=== PATIENT | male | born 1985 ===

== ENCOUNTER 2021-12-08 05:36 | Outpatient (CLI) | payer SELFPAY ==
[~2021-12-08] VITALS: Ht 167.7 cm; Wt 79.5 kg
[~2021-12-08 05:36] MED LIST: ACHD5005 PO; DCS100C PO
[2021-12-11] MEDS ORDERED: ACHD5005 PO ×2 (09:38→16:12)
[2021-12-11] MEDS ORDERED: DOCU-143 PO ×2 (09:38→16:12)
== END 2021-12-10 10:42 | disposition home or self-care (01) ==
LOC: PREOP 05:36
PROVIDERS: ATTEND Surgery
DX: Z01.818 Encounter for other preprocedural examination (principal)

== ENCOUNTER 2021-12-11 06:16 | Day surgery (SDC) | payer OTHER ==
[~2021-12-11] VITALS: Ht 167.7 cm; Wt 79.5 kg
[2021-12-11] VITALS (13 sets, daily range): BP systolic 111–136; BP diastolic 78–109
[2021-12-11] MEDS: LACTATED RINGERS 1,000 ML IV PRN ×2 (07:20→09:16)
[2021-12-11] MEDS ORDERED: LIDOCAINE/EPI 2% 1:100,00 (XYLOCAINE) 20 ML VIAL ONE (07:26)
[2021-12-11] MEDS ORDERED: ceFAZolin 2 GM IV Premixed 50 ML IV ONE ×2 (07:30→08:15)
[2021-12-11] MEDS ORDERED: ONDANSETRON 4 MG/2 ML (SDV) Z0FRAN ONE (07:44)
[2021-12-11] MEDS ORDERED: GLYCOPYRROLATE 0.2 MG/ML (ROBINUL) 2 ML VIAL ONE (07:44)
[2021-12-11] MEDS ORDERED: LIDOCAINE PF 2% 5 ML (XYLOCAINE) VIAL ONE (07:44)
[2021-12-11] MEDS ORDERED: NEOSTIGMINE 3 MG/3 ML VIAL ONE (07:44)
[2021-12-11] MEDS ORDERED: proPOfol 200 MG/20 ML (DIPRIVAN) VIAL IV ONE (07:44)
[2021-12-11] MEDS ORDERED: fentaNYL INJ 100 MCG/2 ML AMP ONE (07:44)
[2021-12-11] MEDS ORDERED: MIDAZOLAM 2 MG/2 ML (VERSED) VIAL IV ONE (07:45)
[2021-12-11] MEDS ORDERED: MIDAZOLAM 2 MG/2 ML (VERSED) VIAL IVP ONE (08:00)
--- NOTE | 2021-12-11 08:00 | Progress Note-Pre Operative ---
Pre-Operative Progress Note H&P Reviewed The H&P was reviewed, patient examined and no changes noted. Date Seen by Provider: December 11, 2021 Time Seen by Provider: 08:00 Date H&P Reviewed: December 11, 2021 Time H&P Reviewed: 08:00 Pre-Operative Diagnosis: gallbladder polyp JAY ALLRED DO December 11, 2021 08:00
[2021-12-11] MEDS ORDERED: ROCURONIUM 50 MG/5 ML (ZEMURON) VIAL IV ONE (09:26)
[2021-12-11] MEDS ORDERED: morphine INJ 10 MG/ML 1ML (SYR OR VIAL) ONE (09:32)
[2021-12-11] MEDS ORDERED: DOCU-143 PO ×2 (09:38→16:12)
[2021-12-11] MEDS ORDERED: ACHD5005 PO ×2 (09:38→16:12)
--- NOTE | 2021-12-11 09:39 | Discharge Inst-Simple/Standard ---
Discharge Inst-Standard Discharge Medications New, Converted or Re-Newed RX: Transmitted to Pharmacy Patient Instructions/Follow Up Plan of Care/Instructions/FU: 2 weeks Ivis Activity as Tolerated: No Discharge Diet: Regular Diet Other Inst to Patient Follow up Appt: Make appointment for 2 weeks. Instructions: No lifting greater than 10 pounds. No strenuous activity. May shower in 24 hours, no tub bath or soaking. Use incentive spirometer at home as directed. No Smoking Skin/Wound Care: You have special glue over incision, it will fall off on it's own. Symptoms to Report: Appetite Changes, Extremity Discoloration, Numbness/Tingling, Swelling Increased, Bleeding Excessive, Eyesight Changes, Pain Increased, Urine Color Change, Constipation(Persistent), Fever over 101 degree F, Pain/Pressure in chest, Urinating Difficulty, Cough Up/Vomit Blood, Heart Beat Irreg/Pounding, Pain/Pressure in jaw, Vaginal Bleeding Increase, Cramps in feet or legs, Lightheadedness, Pain/Pressure in shoulder, Diarrhea(Persistent), Memory Changes Suddenly, Questions/Concerns, Weight gain consecutive days, Dizziness/Fainting, Nausea/Vomiting, Shortness of Breath, Weight gain over 2 pounds. If eyes or skin turn yellow notify physician. If questions or concerns contact your physician Or seek help at emergency department. JAY ALLRED DO December 11, 2021 09:39
--- NOTE | 2021-12-11 09:41 | Progress Note-Post Operative ---
Post-Operative Progess Note Surgeon (s)/Relations Mgr (s) Surgeon JAY ALLERD DO Relations Mgr: Dr. Johnson to assist i retraction dissection and closure Pre-Operative Diagnosis gallbladder polyp Post-Operative Diagnosis chronic choleycystitis, gallbladder polyp Procedure & Operative Findings Date of Procedure 12/11/21 Procedure Performed/Findings PROCEDURE: Laparoscopic cholecystectomy with intraoperative cholangiogram. COMPLICATIONS: None. PROCEDURE: The patient was taken to the operating suite and was prepped and draped in sterile fashion. A surgical pause was performed. Just superior to the umbilicus, a 12 mm incision was made. Dissection was taken down to the fascia, which was then scored and grasped with a Shayne and the abdomen was then entered. A 0 Vicryl suture was placed in a dnqcer-ul-lnuan fashion and a Davalos trocar was placed and secured. Pneumoperitoneum was achieved. A 5mm trochar place in the subxyphoid and 2 in the right upper quadrant. The gallbladder was then grasped and elevated. Omentum was attached to the gallbladder and had to be taken off with cautery/blunt dissection. The cystic duct, and cystic artery were then dissected out. Clip was placed on the distal portion of the cystic duct which was then partially transected. An arrow catheter was inserted into the duct. The cholangiogram was then performed. No filing defects and contrast made its way into the duodenum. Catheter removed. Clips were placed on proximal portion of the cystic duct and then the duct was then transected. Clips were placed along the proximal and distal portion of the cystic artery which was then transected. Hook cautery was used to dissect the gallbladder from the gallbladder fossa achieving hemostasis. The gallbladder was placed in an Endobag and removed through the 12 mm trocar site. The abdomen was then reinspected. Copious amounts of irrigation were used to irrigate the abdomen and there were no signs of active bleeding. Hemostasis had been achieved. The 12 mm fascial defect was then closed with 0 Vicryl suture that had been placed in a [id number]-[id number] fashion. The abdomen was then desufflated, the trocars were removed. The abdomen was then washed and dried. The skin was then closed using 4-0 Monocryl in a subcuticular fashion. The abdomen was washed and dried and Skin Affix was place over incisions. Patient tolerated the procedure well without any complications and was taken to the recovery room in stable condition. Anesthesia Type general Estimated Blood Loss Estimated blood loss (mL): minimal Specimens/Packing Specimens Removed gallbladder JAY ALLRED DO December 11, 2021 09:41
--- NOTE | 2021-12-11 09:53 | Anesthesia-General Post-Op ---
General Patient Condition Mental Status/LOC: Same as Preop Cardiovascular: Satisfactory Nausea/Vomiting: Absent Respiratory: Satisfactory Pain: Controlled Complications: Absent Post Op Complications Complications None Follow Up Care/Instructions Patient Instructions None needed. Anesthesia/Patient Condition Patient Condition Patient is doing well, no complaints, stable vital signs, no apparent adverse anesthesia problems. No complications reported per nursing. ANGELIQUE SULLIVAN CRNA December 11, 2021 09:53
[2021-12-11] MEDS ORDERED: ONDANSETRON 4 MG/2 ML (SDV) Z0FRAN IVP PRN (10:00)
[2021-12-11] MEDS ORDERED: fentaNYL INJ 100 MCG/2 ML AMP IVP ONE (10:00)
[2021-12-11] MEDS ORDERED: HYDROmorphone 2 MG/ML VIAL (DILAUDID) IV ONE (10:00)
--- NOTE | 2021-12-11 10:51 | Diagnostic Imaging Report ---
Indication: Fluoroscopy for intraoperative cholangiogram. Fluoroscopy was provided in the OR during intraoperative angiogram. 6 seconds of fluoroscopic time was utilized. 28 images were obtained demonstrating contrast being injected via the cystic duct remnant. Intrahepatic and extra hepatic bile ducts are normal in caliber. No filling defects are seen. There is normal flow of contrast into the duodenum. IMPRESSION: Fluoroscopy for intraoperative cholangiogram. Dictated by: Dictated on workstation # [id number]
[2021-12-11] MEDS ORDERED: HYDROcodone/APAP 5 MG/325 MG (LORTAB) TAB ONE (11:42)
[2021-12-11] MEDS ORDERED: HYDROcodone/APAP 5 MG/325 MG (LORTAB) TAB PO ONE (11:45)
== END 2021-12-11 14:00 | disposition home or self-care (01) ==
LOC: SDC 06:16
PROVIDERS: ATTEND Surgery
DX: K81.1 Chronic cholecystitis (principal)
CPT/HCPCS: 76000; 87081; 94664